=== PATIENT | male | born 1995 | race African-American/Black ===

== ENCOUNTER 2023-08-06 18:41 | Emergency (ER) | payer SELFPAY ==
[~2023-08-06] VITALS: Ht 177.8 cm; Wt 73.0 kg
[2023-08-06 18:43] VITALS: BP 126/88; PULSE 142; RESP 16; TEMP 98; O2SAT 99
[2023-08-06] MEDS ORDERED: DIPHENHYDRAMINE 50MG/ML VIAL IM STA (19:13)
[2023-08-06] MEDS ORDERED: LORAZEPAM 2MG/ML INJ IM STA (19:13)
[2023-08-06] MEDS ORDERED: HALOPERIDOL LACTATE 5MG/ML VIAL IM STA (19:13)
== END 2023-08-06 19:30 | disposition left against medical advice (07) ==
LOC: ER 18:47
DX: F22 Delusional disorders (principal)
CPT/HCPCS: 99283